=== PATIENT | male | born 1975 | race Caucasian/White ===

== ENCOUNTER 2019-02-21 09:58 | Day surgery (SDC) | payer BC ==
[~2019-02-21] VITALS: Ht 177.8 cm; Wt 110.0 kg
[~2019-02-21 09:58] MED LIST: FASTIN30 MG PO; PERCOCET 325 MG1 TA2 PO; WELLBUTRIN XL300 MG PO
[2019-02-21 10:13] VITALS: BP 132/85; PULSE 55; TEMP 97.8
[2019-02-21 12:05] VITALS: BP 113/73; PULSE 71; TEMP 98.1
--- NOTE | 2019-02-21 12:05 | NUR ---
The patient arrived back to [facility] at this time. The patient ambulated from the cart to the recliner in his room with the stand by assistance of two nurses and appeared to tolerate the activity well. The patient appears drowsy and denies wanting anything to eat or drink at this time. The patient's post procedure vital signs were started at this time. The patient's is at his bedside at this time. The patient's call light is within reach and denies any needs at this time. Will continue to monitor the patient.
[2019-02-21 12:20] VITALS: BP 108/71; PULSE 58
--- NOTE | 2019-02-21 12:20 | NUR ---
The patient appears more alert and requests to try some water, lemon [place] soda and toast at this time. The patient's vital signs appear stable. The patient's remains at his bedside. Will continue to monitor the patient.
[2019-02-21 12:35] VITALS: BP 109/67; PULSE 62
--- NOTE | 2019-02-21 12:35 | NUR ---
The patient is sitting up in the recliner eating his food and appears to be resting comfortably on the cart at this time. The patient denies any pain or nausea and is waiting to speak to the doctor for discharge. Will continue to monitor the patient.
[2019-02-21 12:50] VITALS: BP 114/82; PULSE 54
--- NOTE | 2019-02-21 12:50 | NUR ---
Dr. Chu has spoke with the patient and his regarding the findings of the procedure. The patient has finished his food and drink and voices a desire to be discharged home. Discharge instructions were reviewed with the patient and his at this time. The patient's IV to right hand was removed and a pressure dressing was applied to the site. The nurse instructed the patient to get dressed and notify the staff he is ready to be escorted out.
--- NOTE | 2019-02-21 12:59 | NUR ---
The patient was escorted out via wheelchair to a private vehicle by CONSUELO Pop. The patient's belongings and discharge paperwork were sent with him. The patient's is present to drive him home.
[2019-02-22] MEDS ORDERED: CIPRO 500MG TA500 MG PO (00:36)
[2019-02-22] MEDS ORDERED: ZOFRAN ODT4 MG PO (00:36)
[2019-02-22] MEDS ORDERED: NORCO 325 MG-51 TAB PO (00:36)
[2019-02-22] MEDS ORDERED: FLAGYL500 MG PO (00:36)
== END 2019-02-21 12:59 | disposition home or self-care (01) ==
LOC: SDCO 09:58
DX: D12.2 Benign neoplasm of ascending colon (principal); D12.5 Benign neoplasm of sigmoid colon; K92.1 Melena
CPT/HCPCS: J2250; J3010; J7030

== ENCOUNTER 2019-02-21 21:27 | Emergency (ER) | payer BC ==
[~2019-02-21] VITALS: Ht 177.8 cm; Wt 110.9 kg
[2019-02-21 22:36] LABS: BASO % 0.2 % (0.0-2.0); EOS # 0.1 (0.0-0.7); EOS % 0.4 % (0-4.0); GRAN # 10.6 (1.4-6.5); GRAN % 76.3 % (42.2-75.2); HEMATOCRIT 38.2 % (42.0-52.0); HEMOGLOBIN 13.3 g/dl (13.5-18.0); LYMPH # 2.2 (1.2-3.4); LYMPH % 15.7 % (20.0-51.0); MEAN CELL VOLUME 86 fl (80.0-100.0); MEAN CORPUSCULAR HEMOGLOBIN 30 pg (27.0-31.0); MEAN CORPUSCULAR HGB CONC 35 g/dl (33.0-37.0); MEAN PLATELET VOLUME 9.8 fl (7.4-10.4); MONO % 7.1 % (1.7-9.3); PLATELET COUNT 308 K/mm3 (130-400); RED BLOOD COUNT 4.44 M/mm3 (4.20-5.60); REDCELL DISTRIBUTION WIDTH-CV 12.1 % (11.5-14.5)
[2019-02-21 22:37] VITALS: TEMP 99.4
[2019-02-21 23:06] LABS: ALBUMIN 3.9 gm/dL (3.5-5.0); BILIRUBIN,TOTAL 0.5 mg/dL (0.0-1.0); C-REACTIVE PROTEIN 1.3 mg/dL (0.0-0.9); CALCIUM 8.6 mg/dL (8.4-10.2); CREATININE, serum 0.73 (0.66-1.25); TOTAL PROTEIN 6.5 gm/dL (6.4-8.2)
[2019-02-21 23:26] LABS: COLLECTION METHOD CLEAN CATCH
[2019-02-21 23:34] LABS: PH 7 (5-8); SQUAMOUS EPITHELIAL None Seen /hpf; URINE APPEARANCE Clear; URINE BACTERIA None Seen /hpf; URINE BILIRUBIN Negative (NEGATIVE); URINE BLOOD Negative (NEGATIVE); URINE COLOR Straw; URINE GLUCOSE Negative (NEGATIVE); URINE KETONE Negative (NEGATIVE); URINE LEUKOCYTE ESTERASE Negative (NEGATIVE); URINE NITRATE Negative (NEGATIVE); URINE PROTEIN(semi-quant) Negative (NEGATIVE); URINE RBC 0-2 /hpf; URINE UROBILINOGEN Negative (NEGATIVE)
[2019-02-22] MEDS ORDERED: ZOFRAN ODT4 MG PO (00:36)
[2019-02-22] MEDS ORDERED: FLAGYL500 MG PO (00:36)
[2019-02-22] MEDS ORDERED: CIPRO 500MG TA500 MG PO (00:36)
[2019-02-22] MEDS ORDERED: NORCO 325 MG-51 TAB PO (00:36)
[2019-02-22 00:55] VITALS: BP 120/77; PULSE 80
== END 2019-02-22 00:55 | disposition home or self-care (01) ==
LOC: COL.ER 21:27
PROVIDERS: Emergency Medicine
DX: R10.84 Generalized abdominal pain (principal); Z90.89 Acquired absence of other organs
CPT/HCPCS: J1170; J2405; J7030; Q9967

== ENCOUNTER 2020-12-31 12:05 | Day surgery (SDC) | payer BC ==
[~2020-12-31] VITALS: Ht 175.3 cm; Wt 116.5 kg
[2020-12-31] VITALS (7 sets, daily range): BP systolic 113–143; BP diastolic 56–93; PULSE 67–73; TEMP 98–98.1
[~2020-12-31 12:05] MED LIST changes: +CIPRO 500MG TA500 MG PO; +FLAGYL500 MG PO; +NORCO 325 MG-51 TAB PO; +ZOFRAN ODT4 MG PO
[2020-12-31] MEDS ORDERED: NORCO 325 MG-51 TAB PO ×3 (16:41→20:39)
[2020-12-31] MEDS ORDERED: MOTRIN 600600 MG/TAB PO (16:42)
--- NOTE | 2020-12-31 18:39 | NUR ---
Patient doing well post op. Lap sites x 3 with edges well approximated. Post op fluids infusing per orders, Post op VSS. Patient denies pain at this time. Spouse at bedside. Tolerating diet at this time. Denies further needs at this time. Will report off to metropolitan editor.
--- NOTE | 2020-12-31 19:50 | NUR ---
Lap sites x3-edges well approximated-no drainage noted. VS stable. Has voided and tolerated PO. Discharge instructions given both verbal and handwritten. Discussed f/u appt, s/s of infection, home medications and activity. Denies questions/concerns. Patient visit report given. Requesting antiemetic as well as PO pain meds for ride home. Zofran/[place] given per dr order. Rating pain 3/10-to abdomen-described as constant ache. IV to left [id number] at this time-cath intact. Tolerated well. Escorted off [facility] by PCT via wheelchair to POV in stable condition.
--- NOTE | 2020-12-31 21:15 | NUR ---
of patient called upset stating that [facility] did not have the patients pain medication. States DR Thomas stated the prescriptions were sent to them electronically. States she called earlier in the shift and spoke to Joshua, Charge nurse who stated Dr Thomas would re order the medications at the correct pharmacy. Also states that they returned to [facility] and they will not fill the prescription because it is already filled at a pharmacy in [place] and waiting brain picker. states that pharmacy is currently closed. Dr Thomas Notified of situation and new orders received to fill a take home pack of 4 norco and have patient come back to hospital for brain picker. Done at this time. Joshua, battery recharger nurse verified orders and confirmed brain picker with this nurse.
== END 2020-12-31 19:35 | disposition home or self-care (01) ==
LOC: SDCO → SURG 16:59 → SDCO 19:35
DX: K40.90 Unilateral inguinal hernia, without obstruction or gangrene, not specified as recurrent (principal); G62.9 Polyneuropathy, unspecified; F32.9 Major depressive disorder, single episode, unspecified; Z20.822 Contact with and (suspected) exposure to COVID-19; Z87.891 Personal history of nicotine dependence; Z68.36 Body mass index [BMI] 36.0-36.9, adult; Z79.899 Other long term (current) drug therapy; Z90.89 Acquired absence of other organs; Z80.42 Family history of malignant neoplasm of prostate; Z82.61 Family history of arthritis
CPT/HCPCS: OP; C1781; J0690; J1100; J1885; J2405; J2704; J3010; J7120